=== PATIENT | male | born 1950 | race Caucasian/White ===

== ENCOUNTER 2016-11-08 23:08 | Emergency (ER) | payer OTHER ==
[2016-11-09 01:57] LABS: HEMOGLOBIN 13.9 gm/dl (14.0-17.5); RED BLOOD COUNT 4.66 M/UL (4.20-5.50); WHITE BLOOD COUNT 15.1 K/UL (4.5-11.0)
[2016-11-09 02:15] LABS: BUN/CREATININE RATIO 25 (0-10)
== END 2016-11-09 02:46 | disposition home or self-care (01) ==
LOC: ER1 23:08
PROVIDERS: Physician Assistant
DX: R04.0 Epistaxis (principal); I10 Essential (primary) hypertension; E11.9 Type 2 diabetes mellitus without complications; E78.00 Pure hypercholesterolemia, unspecified; Z87.891 Personal history of nicotine dependence
CPT/HCPCS: 36415; 80053; 85025; 85610; 85730; 96360; 99283